=== PATIENT | female | born 1970 | race Hispanic/Latino ===

== ENCOUNTER 2017-05-01 17:11 | Emergency (ER) | payer OTHER ==
[~2017-05-01] VITALS: Ht 160 cm; Wt 56.3 kg
[2017-05-01] MEDS ORDERED: CYPR4TA PO (17:31)
[2017-05-01] MEDS ORDERED: COLA100C5 PO (17:31)
[2017-05-01] MEDS ORDERED: IRON50TA PO (17:31)
[2017-05-01] MEDS ORDERED: METAL LOCK LOOP XX ONE (18:50)
[2017-05-01 20:40] LABS: BASO % 1.2 % (0.0-1.0); EOS # 0.1 K/mm3 (0.0-0.50); EOS % 1.4 % (0.0-3.0); LARGE UNSTAINED CELL # 0.1 K/mm3 (0.0-0.4); LYMPH # 1.7 K/mm3 (1.5-4.5); LYMPH % 36.9 % (24.0-44.0); MEAN CORPUSCULAR HEMOGLOBIN 31.4 pg (27.0-33.0); MEAN CORPUSCULAR HGB CONC 34.5 g/dl (32.0-36.5); MONO # 0.2 K/mm3 (0.0-0.8); MONO % 4.3 % (0.0-5.0); NEUTROPHILS # 2.4 K/mm3 (1.8-7.7); NEUTROPHILS % 54.3 % (36.0-66.0); PLATELET COUNT, AUTOMATED 274 k/mm3 (150-450); RED CELL DISTRIBUTION WIDTH 12.4 % (11.5-14.5); WHITE BLOOD COUNT 4.4 K/mm3 (4.0-10.0)
[2017-05-01 21:00] LABS: ALBUMIN 4.1 GM/DL (3.2-5.2); ALKALINE PHOSPHATASE 68 U/L (45-117); ALT/SGPT 16 U/L (12-78); ANION GAP 11 MEQ/L (8-16); AST/SGOT 19 U/L (15-37); BILIRUBIN,TOTAL 0.4 MG/DL (0.2-1.0); BLOOD UREA NITROGEN 11 MG/DL (7-18); CALCIUM LEVEL 9.2 MG/DL (8.5-10.1); CARBON DIOXIDE LEVEL 26 MEQ/L (21-32); CHLORIDE LEVEL 106 MEQ/L (98-107); GLOMERULAR FILTRATION RATE > 60.0 (>58); GLUCOSE, FASTING 108 MG/DL (70-105); MAGNESIUM LEVEL 2.2 MG/DL (1.8-2.4); POTASSIUM SERUM 3.7 MEQ/L (3.5-5.1); SODIUM LEVEL 143 MEQ/L (136-145); TOTAL PROTEIN 8.2 GM/DL (6.4-8.2)
[2017-05-01] MEDS ORDERED: cefTRIAXone SOD 2 GM in D5W MINI-BAG PLUS 50 ML IV ONE (21:45)
[2017-05-01] MEDS ORDERED: cefTRIAXone SOD 1 GM VIAL (J0696) IM ONE (21:45)
[2017-05-01] MEDS ORDERED: KEFL500C17 PO (21:45)
[2017-05-01 22:15] VITALS: BP 136/66
== END 2017-05-01 22:28 | disposition home or self-care (01) ==
LOC: M ED 17:11
DX: N39.0 Urinary tract infection, site not specified (principal); Z79.899 Other long term (current) drug therapy
CPT/HCPCS: 80053; 81001; 83735; 85025; 87040; 87088; 87186; 87491; 87591; 96372; 96374; 99282; J0696

== ENCOUNTER → 2017-06-09 | Outpatient (REF) | payer OTHER ==
[~2017-06-09] MED LIST: COLA100C5 PO; CYPR4TA PO; IRON50TA PO; KEFL500C17 PO
[2017-06-09 18:45] LABS: MEAN CORPUSCULAR HEMOGLOBIN 31.2 pg (27.0-33.0); MEAN CORPUSCULAR HGB CONC 33.9 g/dl (32.0-36.5); MEAN CORPUSCULAR VOLUME 92.1 fl (80.0-96.0); WHITE BLOOD COUNT 5.5 10^3/uL (4.0-10.0)
== END ==
LOC: M SFHCPLAZ 14:53
PROVIDERS: ATTEND Family Medicine
DX: D50.9 Iron deficiency anemia, unspecified (principal)

== ENCOUNTER → 2017-07-24 | Outpatient (CLI) | payer OTHER | LOC: M WUC 08:46 | PROVIDERS: ATTEND Obstetrics & Gynecology | DX: N97.8 Female infertility of other origin (principal) ==

== ENCOUNTER → 2017-10-10 | Outpatient (CLI) | payer OTHER ==
[~2017-10-10] MED LIST changes: -COLA100C5 PO; -CYPR4TA PO; -IRON50TA PO; +ISOVUE-370 76% 100ML VIAL (Q9967) As Ordered; -KEFL500C17 PO
== END ==
LOC: M RADPRO 11:45
DX: N97.1 Female infertility of tubal origin (principal); Z79.899 Other long term (current) drug therapy
CPT/HCPCS: 58340

== ENCOUNTER 2017-11-05 14:04 | Emergency (ER) | payer OTHER | END 2017-11-05 14:37 | disposition left against medical advice (07) | LOC: M ED 14:04 | DX: Z53.21 Procedure and treatment not carried out due to patient leaving prior to being seen by health care provider (principal) ==

== ENCOUNTER 2017-11-05 20:10 | Emergency (ER) | payer OTHER | END 2017-11-05 22:18 | disposition home or self-care (01) | LOC: M ED 20:10 | DX: L25.9 Unspecified contact dermatitis, unspecified cause (principal); Z20.7 Contact with and (suspected) exposure to pediculosis, acariasis and other infestations; D64.9 Anemia, unspecified; Z79.899 Other long term (current) drug therapy | CPT/HCPCS: 99283 ==

== ENCOUNTER 2018-02-11 18:31 | Emergency (ER) | payer OTHER | END 2018-02-11 22:59 | disposition home or self-care (01) | LOC: M ED 18:31 | DX: Z60.9 Problem related to social environment, unspecified (principal); S00.81XA Abrasion of other part of head, initial encounter; X78.8XXA Intentional self-harm by other sharp object, initial encounter; Y92.89 Other specified places as the place of occurrence of the external cause; Z79.899 Other long term (current) drug therapy | CPT/HCPCS: 99285 ==

== ENCOUNTER 2018-03-26 13:26 | Emergency (ER) | payer OTHER | END 2018-03-26 16:44 | disposition home or self-care (01) | LOC: M ED 13:26 | DX: M25.561 Pain in right knee (principal); M25.562 Pain in left knee; D64.9 Anemia, unspecified; Z79.899 Other long term (current) drug therapy | CPT/HCPCS: 99282 ==

== ENCOUNTER → 2018-06-26 | Outpatient (REF) | payer OTHER ==
[2018-06-26 15:54] LABS: BASO # 0.1 10^3/uL (0.0-0.2); EOS # 0.1 10^3/uL (0.0-0.50); EOS % 1.4 % (0.0-3.0); HEMATOCRIT 36.2 % (36.0-47.0); HEMOGLOBIN 11.5 g/dl (12.0-15.5); IMMATURE GRANULOCYTE % 0.2 % (0-3.0); LYMPH # 1.8 10^3/uL (1.5-4.5); LYMPH % 35.1 % (24.0-44.0); MEAN CORPUSCULAR HEMOGLOBIN 27.5 pg (27.0-33.0); MEAN CORPUSCULAR HGB CONC 31.8 g/dl (32.0-36.5); MEAN CORPUSCULAR VOLUME 86.6 fl (80.0-96.0); MONO # 0.4 10^3/uL (0.0-0.8); MONO % 8.5 % (0.0-5.0); NEUTROPHILS # 2.8 10^3/uL (1.8-7.7); NEUTROPHILS % 53.8 % (36.0-66.0); PLATELET COUNT, AUTOMATED 352 10^3/uL (150-450); RED BLOOD COUNT 4.18 10^6/uL (4.00-5.40); RED CELL DISTRIBUTION WIDTH 12.3 % (11.5-14.5); WHITE BLOOD COUNT 5.2 10^3/uL (4.0-10.0)
== END ==
LOC: M SFHCPLAZ 13:42
DX: R63.0 Anorexia (principal)
CPT/HCPCS: 85025

== ENCOUNTER 2018-09-03 13:12 | Emergency (ER) | payer OTHER ==
[~2018-09-03] VITALS: Ht 160 cm; Wt 60.5 kg
[~2018-09-03 13:12] MED LIST changes: +BENA2CRE3 EXT; +CLOB-25 TOP; +COLA100C5 PO; +CYPR4TA PO; +ELIM5CRE2 TOP; +IRON50TA PO; -ISOVUE-370 76% 100ML VIAL (Q9967) As Ordered; +KEFL500C17 PO; +MOBI4TAB PO
[2018-09-03 13:13] VITALS: BP 137/67
[2018-09-03 13:40] LABS: URINE PREG TEST NEGATIVE (NEGATIVE)
[2018-09-03] MEDS ORDERED: MACR100C43 PO (14:09)
[2018-09-03] MEDS ORDERED: PYRI1TAB5 PO (14:10)
== END 2018-09-03 14:24 | disposition home or self-care (01) ==
LOC: M ED 13:12
DX: N39.0 Urinary tract infection, site not specified (principal); D64.9 Anemia, unspecified; Z79.899 Other long term (current) drug therapy

== ENCOUNTER 2018-11-07 13:32 | Emergency (ER) | payer OTHER ==
[~2018-11-07] VITALS: Ht 160 cm; Wt 61.4 kg
[~2018-11-07 13:32] MED LIST changes: +MACR100C43 PO; +PYRI1TAB5 PO
[2018-11-07] MEDS ORDERED: IBUP-1022 PO (14:51)
[2018-11-07] MEDS ORDERED: LIDO1SOL7 PO (14:51)
[2018-11-07 14:59] VITALS: BP 118/78
[2018-11-07] MEDS ORDERED: LIDOCAINE VISCOUS 2% SOLN 15ML UDC SS ONE (15:00)
[2018-11-07] MEDS ORDERED: IBUPROFEN 600 MG TAB PO ONE (15:00)
== END 2018-11-07 15:14 | disposition home or self-care (01) ==
LOC: M ED 13:32
DX: J02.9 Acute pharyngitis, unspecified (principal); Z79.899 Other long term (current) drug therapy

== ENCOUNTER → 2018-12-30 | Outpatient (CLI) | payer OTHER ==
[~2018-12-30] MED LIST changes: +IBUP-1022 PO; +LIDO1SOL8 PO
--- NOTE | 2018-12-30 13:46 | REP ---
THORACIC SPINE, THREE VIEWS: HISTORY: Low back pain. There is no acute fracture or subluxation. The intervertebral discs are normal in height. IMPRESSION: There is no acute fracture or subluxation. Electronically Signed by Michael Dee MD 12/30/2018 01:52 P
--- NOTE | 2018-12-30 13:48 | REP ---
LUMBAR SPINE, SEVEN VIEWS: HISTORY: Low back pain. There is no acute fracture or subluxation. The L4-5 intervertebral disc is decreased in height consistent with disc degeneration. The facet joints are normal in appearance. IMPRESSION: Degenerative change as described above. Electronically Signed by Michael Dee MD 12/30/2018 01:52 P
== END ==
LOC: M RAD 12:01
PROVIDERS: ATTEND Family Medicine
DX: M54.5 Low back pain (principal)

== ENCOUNTER → 2019-01-03 | Outpatient (REF) | payer OTHER ==
[2019-01-03 10:46] LABS: HEMATOCRIT 37.3 % (36.0-47.0); HEMOGLOBIN 11.6 g/dl (12.0-15.5); MEAN CORPUSCULAR HEMOGLOBIN 26.2 pg (27.0-33.0); MEAN CORPUSCULAR HGB CONC 31.1 g/dl (32.0-36.5); MEAN CORPUSCULAR VOLUME 84.2 fl (80.0-96.0); PLATELET COUNT, AUTOMATED 336 10^3/uL (150-450); RED BLOOD COUNT 4.43 10^6/uL (4.00-5.40); WHITE BLOOD COUNT 4.6 10^3/uL (4.0-10.0)
[2019-01-03 11:15] LABS: CHOLESTEROL LEVEL 182 MG/DL (<200); CHOLESTEROL RISK RATIO 3.137 (<5); GLUCOSE, FASTING 104 MG/DL (70-100); HDL CHOLESTEROL 58 MG/DL (>40); LDL CHOLESTEROL 108 MG/DL (<100); NON-HDL-C 124 MG/DL; TRIGLYCERIDES LEVEL 81 MG/DL (<150)
[2019-01-03 11:27] LABS: TOTAL 25(OH) VITAMIN D 16.9 NG/ML (30.0-100.0)
[2019-01-03 12:07] LABS: HIV 1&2 SCREEN CENTAUR NEGATIVE (NEGATIVE)
[2019-01-03 12:15] LABS: CHLAMYDIA DNA AMPLIFICATION NEGATIVE (NEGATIVE); GC DNA AMPLIFICATION NEGATIVE (NEGATIVE)
== END ==
LOC: M SFHCPLAZ 09:06
PROVIDERS: ATTEND Family Medicine
DX: D50.9 Iron deficiency anemia, unspecified (principal); Z11.3 Encounter for screening for infections with a predominantly sexual mode of transmission; Z13.1 Encounter for screening for diabetes mellitus; Z13.220 Encounter for screening for lipoid disorders; E55.9 Vitamin D deficiency, unspecified

== ENCOUNTER → 2019-01-09 | Outpatient (CLI) | payer OTHER ==
--- NOTE | 2019-01-10 04:59 | REP ---
Clinical: Menometrorrhagia . Technique: Transabdominal pelvic ultrasound followed by transvaginal examination for better evaluation of the endometrium and adnexa with color Doppler evaluation of the ovaries. Findings: Bladder is unremarkable and measures 6.4 x 5.7 x 9.1 cm . Normal anteverted uterus measures 8.4 x 5.7 x 7.0 cm . The endometrial complex measures 11.6 mm thickness. No discrete uterine or endometrial abnormalities are appreciated. Incidental Nabothian cyst noted in the cervical region. Right ovary is normal in appearance and measures 2.4 x 1.4 x 2.5 cm. Left ovary measures 3.0 x 2.6 x 2.7 cm with suspected complex hemorrhagic cystic change. No pelvic fluid or adnexal mass lesion . Impression: 1. Essentially normal uterus with few Nabothian cysts. 2. Suspected complex hemorrhagic cyst in the left ovary. Consider reevaluation and 4-6 weeks to evaluate for resolution.
== END ==
LOC: M WHC 12:58
PROVIDERS: ATTEND Family Medicine
DX: N88.8 Other specified noninflammatory disorders of cervix uteri (principal)

== ENCOUNTER → 2019-01-12 | Outpatient (REF) | payer OTHER | LOC: M SFHCWAGY 10:49 | PROVIDERS: ATTEND Nurse Practitioner Women's Health | DX: N92.1 Excessive and frequent menstruation with irregular cycle (principal); N84.1 Polyp of cervix uteri ==

== ENCOUNTER 2019-02-05 12:48 | Emergency (ER) | payer OTHER ==
[~2019-02-05] VITALS: Ht 160 cm; Wt 59.5 kg
[2019-02-05] MEDS ORDERED: VITAD1000T PO (13:29)
[2019-02-05] MEDS ORDERED: ACET-683 PO (13:29)
[2019-02-05] MEDS ORDERED: KETO10TAB PO (14:30)
[2019-02-05] MEDS ORDERED: CYCL5TAB PO (14:30)
[2019-02-05 14:42] VITALS: BP 130/76
== END 2019-02-05 14:42 | disposition home or self-care (01) ==
LOC: M ED 12:48
DX: M62.838 Other muscle spasm (principal); N93.8 Other specified abnormal uterine and vaginal bleeding; D64.9 Anemia, unspecified; Z79.899 Other long term (current) drug therapy

== ENCOUNTER → 2019-02-15 | Outpatient (CLI) | payer OTHER ==
[~2019-02-15] MED LIST changes: +ACET-683 PO; +CYCL5TAB PO; +KETO10TAB PO; +VITAD1000T PO
--- NOTE | 2019-02-15 12:41 | REPMRS ---
Patient History The patient states she has not had a clinical breast exam in over a year. Family history of prostate cancer at age 50 or over in paternal grandfather. Implants in both breasts, 2000. Digital Woman Screen Mammo: February 15, 2019 - Exam #: [id number] Bilateral CC and MLO view(s) were taken. Technologist: Bebe King Technologist Prior study comparison: July 12, 2017, digital woman screen mammo performed at [facility]. FINDINGS: There are scattered fibroglandular densities. The visualized implant margins are smooth. Breast parenchymal density pattern is essentially symmetric. No dominant mass, clustered microcalcification, or architectural distortion is evident on either side. No significant changes when compared with prior studies. Assessment: BI-RADS/ACR category 2 mammogram. Benign Findings. Recommendation Routine screening mammogram of both breasts in 1 year (for women over age 40). This patient's Lifetime Breast Cancer RIsk is estimated at 9.4 %. This mammogram was interpreted with the aid of an FDA-approved computer-aided dectection system. Electronically Signed By: Kyle Grigsby MD 02/15/19 0026
--- NOTE | 2019-02-15 12:49 | REP ---
PELVIC SONOGRAPHY: HISTORY: Hemorrhagic cyst left ovary. Comparison pelvic sonography January 09, 2019. TODAY'S SONOGRAPHIC FINDINGS: Transabdominal and endovaginal scanning are performed. Uterine dimensions are normal at 8.0 x 4.7 x 6.6 cm. Endometrial echo 0.4 cm thick. Uterus is tipped somewhat to the left. Nabothian cysts are seen in the cervix. Normal ovaries are seen today bilaterally. Right ovary dimensions of 2.8 x 1.4 x 2.2 cm. Left ovary measures 2.1 x 1.1 x 1.6 cm. Doppler flow is normal with resistive indices measured at 0.46 and 0.58 on the right and left respectively. The rounded hypoechoic structure in the left adnexa seen recently is no longer apparent. IMPRESSION: Unremarkable pelvic sonography.
== END ==
LOC: M WHC 10:46
PROVIDERS: ATTEND Family Medicine
DX: N83.202 Unspecified ovarian cyst, left side (principal)

== ENCOUNTER 2019-04-18 10:15 | Day surgery (SDC) | payer OTHER ==
[~2019-04-18] VITALS: Ht 160 cm; Wt 61.2 kg
[~2019-04-18 10:15] MED LIST changes: +COLLCAP PO; +KETOROLAC 60 MG/2 ML VIAL (J1885) As Ordered ONE; +LIDOCAINE 2% INJ 100 MG/5 ML SDV (FOR ANES.) As Ordered ONE; +LR 1,000 ML IV ONE; +MIDAZOLAM INJ 2 MG/2 ML VIAL (J2250) As Ordered ONE; +ONDANSETRON 4MG/2ML VIAL (J2405) As Ordered ONE; +PROPOFOL 200 MG/20 ML VIAL As Ordered ONE; +dexameTHASONE 4 MG/ML 1ML VIAL (J1100) As Ordered ONE; +fentaNYL 100 MCG/2 ML INJECTION (J3010) As Ordered ONE
[2019-04-18 10:55] LABS: HEMATOCRIT 39.7 % (36.0-47.0); HEMOGLOBIN 12.8 g/dl (12.0-15.5); MEAN CORPUSCULAR HGB CONC 32.2 g/dl (32.0-36.5); PLATELET COUNT, AUTOMATED 265 10^3/uL (150-450); RED BLOOD COUNT 4.41 10^6/uL (4.00-5.40); WHITE BLOOD COUNT 5.4 10^3/uL (4.0-10.0)
[2019-04-18 10:56] LABS: URINE PREG TEST NEGATIVE (NEGATIVE)
[2019-04-18] MEDS ORDERED: oxyCODONE 5MG TAB As Ordered ONE (13:40)
--- NOTE | 2019-04-18 14:03 | RO ---
DATE OF PROCEDURE: 04/18/2019 PREOPERATIVE DIAGNOSIS: Abnormal uterine bleeding. POSTOPERATIVE DIAGNOSIS: Abnormal uterine bleeding. PROCEDURE PERFORMED: Hysteroscopy, dilation and curettage with NovaSure ablation. SURGEON: Nu Monterroso MD BEVEL MILL OPERATOR: None. ANESTHESIA: General. ESTIMATED BLOOD LOSS: 5 mL. INTRAVENOUS FLUIDS: 1 liter of lactated Ringer's solution. URINE OUTPUT: Was not obtained. SPECIMENS: Endometrial curettings. OPERATIVE FINDINGS: The patient with thickened endometrium with bilateral ostia visualized, cavity measured 5 x 4.9 cm. Postablation showed desiccation of the endometrium. Ablation lasted approximately 1 minute 45 seconds. DESCRIPTION OF OPERATION: After informed consent was obtained and written consent was reviewed, the patient was brought to the operating room where she was placed under general anesthesia. She was then placed in lithotomy position, was prepped and draped in a normal sterile fashion. A time out in the operating room was then performed identifying the patient, procedure be performed as well as drug allergies. Eleele speculum was then placed revealing the cervix and the anterior lip of cervix was grasped with a single-tooth tenaculum. The cervix was sounded and the uterine length was obtained. The cervix was then sequentially dilated with Hanks dilators. Hysteroscope was then advanced through the cervical os and the endometrium was surveyed showing a thickened endometrium. Bilateral ostia was visualized. Hysteroscope was then removed and the NovaSure device was then placed through the cervical os where the uterine width was obtained. Uterine width as well as the length was then entered into the device, a cavity assessment was performed and ablation was followed for approximately 1 minute 45 seconds. The NovaSure was then removed. The mesh was inspected noted to be intact. Hysteroscope was then advanced showing desiccation of the endometrium. Hysteroscope was then removed. Single-tooth tenaculum was removed. Tenaculum sites were noted be hemostatic. Speculum was then removed. The patient was then taken out of lithotomy position was awakened from general anesthesia and taken recovery in stable condition. Counts were correct.
[2019-04-18] MEDS ORDERED: PROMETHAZINE INJ 25 MG/ML VIAL (J2550) IV PRN (14:30)
[2019-04-18] MEDS ORDERED: LR 1,000 ML IV SCH (14:30)
[2019-04-18] MEDS ORDERED: METOCLOPRAMIDE INJ 10MG/2ML VIAL (J2765) IV PRN (14:30)
[2019-04-18] MEDS ORDERED: HYDROMORPHONE HCL 0.5 MG/ 0.5 ML SYRINGE (J1170 PER 1) IV PRN (14:30)
[2019-04-18] MEDS ORDERED: fentaNYL 100 MCG/2 ML INJECTION (J3010) IV PRN (14:30)
[2019-04-18] MEDS ORDERED: oxyCODONE 5MG TAB PO PRN (14:30)
[2019-04-18] MEDS ORDERED: PERCOCET 5MG/325MG TAB PO PRN (14:30)
[2019-04-18 14:35] VITALS: BP 125/65
[2019-04-18] MEDS ORDERED: KETOROLAC 30 MG/ML VIAL (J1885) IV SCH (17:00)
== END 2019-04-18 15:15 | disposition home or self-care (01) ==
LOC: M SDC 10:15
PROVIDERS: ATTEND Obstetrics & Gynecology
DX: N93.9 Abnormal uterine and vaginal bleeding, unspecified (principal); D64.9 Anemia, unspecified; Z79.899 Other long term (current) drug therapy
CPT/HCPCS: 36415; 58563; 84703; 85027; 86850; 86900; 86901; 88305; J1100; J1885; J2250; J2405

== ENCOUNTER 2019-05-09 17:18 | Emergency (ER) | payer OTHER ==
[~2019-05-09] VITALS: Ht 160 cm; Wt 132.0 kg
[~2019-05-09 17:18] MED LIST changes: +CHOL100029 PO; -KETOROLAC 60 MG/2 ML VIAL (J1885) As Ordered ONE; -LIDOCAINE 2% INJ 100 MG/5 ML SDV (FOR ANES.) As Ordered ONE; -LR 1,000 ML IV ONE; -MIDAZOLAM INJ 2 MG/2 ML VIAL (J2250) As Ordered ONE; -ONDANSETRON 4MG/2ML VIAL (J2405) As Ordered ONE; -PROPOFOL 200 MG/20 ML VIAL As Ordered ONE; -VITAD1000T PO; -dexameTHASONE 4 MG/ML 1ML VIAL (J1100) As Ordered ONE; -fentaNYL 100 MCG/2 ML INJECTION (J3010) As Ordered ONE
[2019-05-09 18:31] LABS: HCG, SERUM QUALITATIVE NEGATIVE (NEGATIVE)
[2019-05-09 20:04] VITALS: BP 123/63
[2019-05-09] MEDS ORDERED: MACR100C43 PO (20:37)
[2019-05-09] MEDS ORDERED: NITROFURANTOIN (MACROBID) 100 MG CAP PO ONE (20:45)
== END 2019-05-09 20:52 | disposition home or self-care (01) ==
LOC: M ED 17:18
DX: N39.0 Urinary tract infection, site not specified (principal); E11.9 Type 2 diabetes mellitus without complications; D64.9 Anemia, unspecified; N92.0 Excessive and frequent menstruation with regular cycle; Z87.442 Personal history of urinary calculi; Z87.42 Personal history of other diseases of the female genital tract; Z79.899 Other long term (current) drug therapy

== ENCOUNTER 2019-05-16 20:03 | Emergency (ER) | payer OTHER ==
[~2019-05-16] VITALS: Ht 160 cm; Wt 60.0 kg
[2019-05-16 20:03] VITALS: BP 129/83
== END 2019-05-16 22:41 | disposition left against medical advice (07) ==
LOC: M ED 20:03
DX: Z53.21 Procedure and treatment not carried out due to patient leaving prior to being seen by health care provider (principal)

== ENCOUNTER → 2019-06-04 | Outpatient (CLI) | payer OTHER ==
--- NOTE | 2019-06-04 10:18 | REP ---
RIGHT UPPER QUADRANT ULTRASOUND: Real-time sonographic evaluation of the right upper quadrant performed. Echogenic focus along the inner wall of the gallbladder does not demonstrate distal acoustic shadowing and is non-mobile suspicious for a polyp, 4 mm. Otherwise no definite gallstones are seen and there is no gallbladder wall thickening. There is no free fluid. There is no intrahepatic or extrahepatic biliary dilatation, common bile duct measuring 4 mm. Liver demonstrates a heterogeneous mass 4.2 x 3.6 x 5.0 cm, hyperechoic, in the right lobe of the liver. Pancreas is not well seen due to overlying bowel gas. Right kidney demonstrates no hydronephrosis 9.8 cm in length. IMPRESSION: Findings most consistent with a polyp in the gallbladder 4 mm in diameter. No definite gallstones, gallbladder wall thickening or biliary dilatation. No free fluid. There is an irregular hyperechoic area in the right lobe of the liver with a maximum diameter of the 5 cm. Differential diagnosis would include hemangioma, focal area of fatty infiltration or other mass. Recommend further evaluation with MRI liver with and without contrast. Electronically Signed by Demarcus Rebolledo MD 06/04/2019 04:33 P
== END ==
LOC: M RAD 07:48
PROVIDERS: ATTEND Family Medicine
DX: K82.4 Cholesterolosis of gallbladder (principal)

== ENCOUNTER → 2019-06-07 | Outpatient (REF) | payer OTHER ==
[2019-06-07 11:39] LABS: ALBUMIN 3.6 GM/DL (3.2-5.2); ALT/SGPT 13 U/L (12-78); BILIRUBIN,TOTAL 0.6 MG/DL (0.2-1.0); BLOOD UREA NITROGEN 10 MG/DL (7-18); CALCIUM LEVEL 8.7 MG/DL (8.5-10.1); CARBON DIOXIDE LEVEL 28 MEQ/L (21-32); CHLORIDE LEVEL 106 MEQ/L (98-107); CREATININE FOR GFR 0.74 MG/DL (0.55-1.30); GLOMERULAR FILTRATION RATE > 60.0 (>58); GLUCOSE, FASTING 137 MG/DL (70-100); POTASSIUM SERUM 3.9 MEQ/L (3.5-5.1); SODIUM LEVEL 140 MEQ/L (136-145); TOTAL PROTEIN 7.2 GM/DL (6.4-8.2)
[2019-06-12 16:47] LABS: AFP TUMOR TOTAL 1.7 ng/mL (0.0-8.0)
== END ==
LOC: M SFHCPLAZ 09:58
PROVIDERS: ATTEND Family Medicine
DX: R16.0 Hepatomegaly, not elsewhere classified (principal)

== ENCOUNTER → 2019-06-15 | Outpatient (CLI) | payer OTHER ==
--- NOTE | 2019-06-15 16:59 | REP ---
MRI LIVER WITH AND WITHOUT CONTRAST: COMPARISON: Ultrasound 06/04/2019. TECHNIQUE: Multiple sequences obtained in the axial and coronal planes prior to and following the intravenous administration of 15 mL ProHance. In the posterior segment of the right lobe of the liver, just above the upper pole of the right kidney, there is a geographic area of low signal on out of phase images. This is also low in signal on the T1 FS images, both pre and postcontrast. There is no abnormal enhancement in any portion of the liver, with no enhancing mass. The area of low signal on the out of phase and fat sat images corresponds to the hyperechoic area on ultrasound and is consistent with focal fatty infiltration of the liver at this location. There is no gallbladder wall edema. The spleen is normal in size with no intrinsic abnormality. The adrenals, pancreas and kidneys appear normal. There is no abdominal aortic aneurysm. There is no adenopathy or free fluid. IMPRESSION: The area of abnormal echotexture in the right lobe of the liver corresponds to a geographic area of focal fatty infiltration on the MRI images. The borders are somewhat irregular and the area measures approximately 5 cm in maximum diameter. There is no suspicious liver mass or adenopathy. Electronically Signed by Demarcus Rebolledo MD 06/19/2019 08:58 A
== END ==
LOC: M PLARAD 14:00
PROVIDERS: ATTEND Family Medicine
DX: R16.0 Hepatomegaly, not elsewhere classified (principal)

== ENCOUNTER 2019-07-23 11:59 | Emergency (ER) | payer OTHER ==
[~2019-07-23] VITALS: Ht 160 cm; Wt 61.4 kg
[2019-07-23] MEDS ORDERED: BACT800T5 PO (14:09)
[2019-07-23] MEDS ORDERED: PYRI1TAB5 PO (14:09)
[2019-07-23 14:29] LABS: BASO # 0.1 10^3/uL (0.0-0.2); BASO % 0.9 % (0.0-1.0); EOS % 0.6 % (0.0-3.0); HEMATOCRIT 46.6 % (36.0-47.0); HEMOGLOBIN 15.1 g/dl (12.0-15.5); LYMPH # 1.8 10^3/uL (1.5-5.0); LYMPH % 26.8 % (24.0-44.0); MEAN CORPUSCULAR HEMOGLOBIN 29.6 pg (27.0-33.0); MEAN CORPUSCULAR HGB CONC 32.4 g/dl (32.0-36.5); MEAN CORPUSCULAR VOLUME 91.4 fl (80.0-96.0); MONO # 0.3 10^3/uL (0.0-0.8); MONO % 5.2 % (0.0-5.0); NEUTROPHILS # 4.3 10^3/uL (1.5-8.5); NEUTROPHILS % 66.3 % (36.0-66.0); PLATELET COUNT, AUTOMATED 320 10^3/uL (150-450); WHITE BLOOD COUNT 6.5 10^3/uL (4.0-10.0)
[2019-07-23 14:50] VITALS: BP 130/78
== END 2019-07-23 14:55 | disposition home or self-care (01) ==
LOC: M ED 11:59
DX: N39.0 Urinary tract infection, site not specified (principal)

== ENCOUNTER → 2019-07-30 | Outpatient (REF) | payer OTHER ==
[~2019-07-30] MED LIST changes: +BACT800T5 PO
[2019-07-30 19:54] LABS: APPEARANCE, URINE HAZY (CLEAR); BACTERIA, URINE AUTO 1+ (NEGATIVE); BILIRUBIN, URINE AUTO NEGATIVE (NEGATIVE); BLOOD, URINE BLOOD 1+ (NEGATIVE); CALCIUM OXALATE CRYSTALS SMALL; COLOR, URINE YELLOW (YELLOW); GLUCOSE, URINE (UA) AUTO 1+ mg/dL (NEGATIVE); KETONE, URINE AUTO NEGATIVE (NEGATIVE); LEUKOCYTE ESTERASE, URINE AUTO TRACE (NEGATIVE); MUCUS, URINE SMALL (NEGATIVE); NITRITE, URINE AUTO NEGATIVE (NEGATIVE); PROTEIN, URINE AUTO NEGATIVE (NEGATIVE); RBC, URINE AUTO 1 /HPF (0-3); SPECIFIC GRAVITY URINE AUTO 1.023 (1.002-1.035); SQUAMOUS EPITHELIAL CELL UR AU 3 /HPF (0-6); TRANSITIONAL EPITHELIAL AUTO <1 /HPF; UROBILINOGEN, URINE AUTO 0.2 mg/dL (0.0-2.0); WBC, URINE AUTO 3 /HPF (0-3)
== END ==
LOC: M SMT 17:17
PROVIDERS: ATTEND Nurse Practitioner Family
DX: N39.0 Urinary tract infection, site not specified (principal)

== ENCOUNTER → 2019-08-01 | Outpatient (CLI) | payer OTHER ==
--- NOTE | 2019-08-01 15:35 | REP ---
Clinical: Urinary tract infection. Technique: Real time grey scale ultrasound examination using curved array transducer. Findings: The bilateral kidneys are normal in contour, size, echogenicity, and reniform shape without hydronephrosis, nephrolithiasis, cystic or renal mass lesion. Right kidney measures 10.6 x 4.2 x 3.4 cm. Left kidney measures 10.8 x 3.9 x 5.2 cm. Impression: Normal renal ultrasound. Electronically Signed by Reinier Terry MD 08/01/2019 03:26 P
--- NOTE | 2019-08-01 15:36 | REP ---
Clinical: Urinary tract infection. Technique: Real time grey scale and color evaluation using curved array transducer. Findings: Bladder is normal in appearance and without wall thickening or mass lesion. Bilateral ureteral jets noted. Prevoid bladder measures 9.4 x 9.3 x 6.8 cm (388 ml). Postvoid bladder measures 5.2 x 8.2 x 2.6 cm (72 ml). Postvoid residual equals 18%. Impression: Normal appearance of the bladder with moderately increased postvoid residual volume noted. Electronically Signed by Reinier Terry MD 08/01/2019 03:28 P
== END ==
LOC: M RAD 14:14
PROVIDERS: ATTEND Nurse Practitioner Family
DX: N39.0 Urinary tract infection, site not specified (principal)

== ENCOUNTER 2019-08-11 18:21 | Emergency (ER) | payer OTHER ==
[~2019-08-11] VITALS: Ht 160 cm; Wt 61.4 kg
[2019-08-11] MEDS ORDERED: BIOT1CAP2 PO (19:08)
[2019-08-11] MEDS ORDERED: B-12100T2 PO (19:08)
[2019-08-11] MEDS ORDERED: PHENAZOPYRIDINE 100 MG TAB PO ONE (19:30)
[2019-08-11 20:23] LABS: CHLAMYDIA DNA AMPLIFICATION NEGATIVE (NEGATIVE); GC DNA AMPLIFICATION NEGATIVE (NEGATIVE)
[2019-08-11] MEDS ORDERED: BACTRIM 160MG/800MG DS TAB PO ONE (20:30)
[2019-08-11] MEDS ORDERED: SULF1TAB93 PO (20:33)
[2019-08-11] MEDS ORDERED: PYRI1TAB5 PO (20:33)
[2019-08-11 20:45] VITALS: BP 119/65
== END 2019-08-11 20:46 | disposition home or self-care (01) ==
LOC: M ED 18:21
DX: N39.0 Urinary tract infection, site not specified (principal); R31.9 Hematuria, unspecified; Z87.440 Personal history of urinary (tract) infections; Z79.899 Other long term (current) drug therapy

== ENCOUNTER → 2019-10-09 | Outpatient (REF) | payer OTHER ==
[~2019-10-09] MED LIST changes: +B-12100T2 PO; +BIOT1CAP2 PO; +SULF1TAB93 PO
[2019-10-09 19:46] LABS: APPEARANCE, URINE CLOUDY (CLEAR); BACTERIA, URINE AUTO 1+ (NEGATIVE); BILIRUBIN, URINE AUTO NEGATIVE (NEGATIVE); BLOOD, URINE BLOOD NEGATIVE (NEGATIVE); COLOR, URINE YELLOW (YELLOW); GLUCOSE, URINE (UA) AUTO NEGATIVE (NEGATIVE); KETONE, URINE AUTO NEGATIVE (NEGATIVE); LEUKOCYTE ESTERASE, URINE AUTO TRACE (NEGATIVE); MUCUS, URINE SMALL (NEGATIVE); NITRITE, URINE AUTO POSITIVE (NEGATIVE); PROTEIN, URINE AUTO NEGATIVE (NEGATIVE); RBC, URINE AUTO 2 /HPF (0-3); SPECIFIC GRAVITY URINE AUTO 1.018 (1.002-1.035); SQUAMOUS EPITHELIAL CELL UR AU 4 /HPF (0-6); UROBILINOGEN, URINE AUTO 0.2 mg/dL (0.0-2.0); WBC, URINE AUTO 31 /HPF (0-3)
== END ==
LOC: M SMT 16:42
PROVIDERS: ATTEND Nurse Practitioner Family
DX: N39.0 Urinary tract infection, site not specified (principal)

== ENCOUNTER → 2019-10-24 | Outpatient (REF) | payer OTHER ==
[~2019-10-24] MED LIST changes: -LIDO1SOL8 PO; +LIDO2SOL17 PO; +NITR100C2
[2019-10-24 18:45] LABS: APPEARANCE, URINE HAZY (CLEAR); BACTERIA, URINE AUTO NEGATIVE (NEGATIVE); BILIRUBIN, URINE AUTO NEGATIVE (NEGATIVE); BLOOD, URINE BLOOD NEGATIVE (NEGATIVE); CALCIUM OXALATE CRYSTALS MODERATE; COLOR, URINE YELLOW (YELLOW); GLUCOSE, URINE (UA) AUTO NEGATIVE (NEGATIVE); KETONE, URINE AUTO NEGATIVE (NEGATIVE); LEUKOCYTE ESTERASE, URINE AUTO NEGATIVE (NEGATIVE); MUCUS, URINE SMALL (NEGATIVE); NITRITE, URINE AUTO NEGATIVE (NEGATIVE); PROTEIN, URINE AUTO NEGATIVE (NEGATIVE); RBC, URINE AUTO 1 /HPF (0-3); SPECIFIC GRAVITY URINE AUTO 1.024 (1.002-1.035); SQUAMOUS EPITHELIAL CELL UR AU 3 /HPF (0-6); UROBILINOGEN, URINE AUTO 0.2 mg/dL (0.0-2.0); WBC, URINE AUTO 1 /HPF (0-3)
== END ==
LOC: M SMT 17:09
PROVIDERS: ATTEND Nurse Practitioner Family
DX: N39.0 Urinary tract infection, site not specified (principal)

== ENCOUNTER 2019-10-26 12:59 | Emergency (ER) | payer OTHER ==
[~2019-10-26] VITALS: Ht 160 cm; Wt 61.4 kg
[~2019-10-26 12:59] MED LIST changes: -NITR100C2
[2019-10-26] MEDS ORDERED: NITR100C2 (13:05)
[2019-10-26 13:45] LABS: BASO % 0.7 % (0.0-1.0); EOS # 0.1 10^3/uL (0.0-0.5); EOS % 1.6 % (0.0-3.0); HEMATOCRIT 43.4 % (36.0-47.0); HEMOGLOBIN 14.7 g/dl (12.0-15.5); LYMPH # 1.5 10^3/uL (1.5-5.0); LYMPH % 35.1 % (24.0-44.0); MEAN CORPUSCULAR HEMOGLOBIN 30.7 pg (27.0-33.0); MEAN CORPUSCULAR HGB CONC 33.9 g/dl (32.0-36.5); MEAN CORPUSCULAR VOLUME 90.6 fl (80.0-96.0); MONO # 0.3 10^3/uL (0.0-0.8); MONO % 7.3 % (0.0-5.0); NEUTROPHILS # 2.4 10^3/uL (1.5-8.5); NEUTROPHILS % 55.1 % (36.0-66.0); PLATELET COUNT, AUTOMATED 255 10^3/uL (150-450); RED BLOOD COUNT 4.79 10^6/uL (4.00-5.40); WHITE BLOOD COUNT 4.3 10^3/uL (4.0-10.0)
[2019-10-26 13:56] LABS: INR 0.94; PROTHROMBIN TIME 12.3 SECONDS (11.8-14.0)
[2019-10-26 13:57] LABS: PARTIAL THROMBOPLASTIN TIME 27.9 SECONDS (25.0-38.4)
[2019-10-26 14:09] LABS: HCG, SERUM QUALITATIVE NEGATIVE (NEGATIVE)
[2019-10-26 14:20] LABS: ALBUMIN 4.3 GM/DL (3.2-5.2); ALT/SGPT 27 U/L (12-78); BILIRUBIN,DIRECT 0.1 MG/DL (0.0-0.2); BILIRUBIN,TOTAL 0.5 MG/DL (0.2-1.0); BLOOD UREA NITROGEN 10 MG/DL (7-18); CALCIUM LEVEL 9.7 MG/DL (8.5-10.1); CARBON DIOXIDE LEVEL 27 MEQ/L (21-32); CHLORIDE LEVEL 106 MEQ/L (98-107); CK-MB VALUE MASS < 1.0 NG/ML (<3.6); CPK CREATINE PHOSPHOKINASE 188 U/L (26-192); CREATININE FOR GFR 0.58 MG/DL (0.55-1.30); FREE T4 1.01 NG/DL (0.76-1.46); GLOMERULAR FILTRATION RATE > 60.0 (>58); GLUCOSE, FASTING 84 MG/DL (70-100); LIPASE 155 U/L (73-393); MAGNESIUM LEVEL 2.1 MG/DL (1.8-2.4); MB/CK RELATIVE INDEX 0.53 (< OR =4); NT-PRO BNP 90 PG/ML (<125); POTASSIUM SERUM 4.8 MEQ/L (3.5-5.1); SODIUM LEVEL 139 MEQ/L (136-145); TOTAL PROTEIN 8.2 GM/DL (6.4-8.2); TROPONIN I < 0.02 NG/ML (< 0.10)
--- NOTE | 2019-10-26 14:47 | REP ---
Clinical: Chest pain . Comparison: None . Findings: The mediastinum and cardiac silhouette are stable and within normal limits for portable technique. The lung patel are clear without acute consolidation, effusion, or pneumothorax. Skeletal structures are intact. Impression: No acute cardiopulmonary process appreciated. Electronically Signed by Reinier Terry MD 10/26/2019 02:38 P
[2019-10-26] MEDS ORDERED: ISOVUE-370 76% 100ML VIAL (Q9967) As Ordered ONE (14:48)
[2019-10-26 20:20] LABS: CK-MB VALUE MASS < 1.0 NG/ML (<3.6); CPK CREATINE PHOSPHOKINASE 86 U/L (26-192); MB/CK RELATIVE INDEX 1.16 (< OR =4); TROPONIN I < 0.02 NG/ML (< 0.10)
[2019-10-26 21:13] VITALS: BP 110/70
--- NOTE | 2019-10-28 20:33 | ECGEPIP ---
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
--- NOTE | 2019-10-28 20:38 | ECGEPIP ---
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
--- NOTE | 2019-10-30 00:32 | REP ---
Clinical: Acute pleuritic chest pain . Technique: Axial contrast enhanced images from the thoracic inlet to the upper abdomen using 75 ml Isovue 370 intravenous contrast material with multiplanar re-formations. Findings: Satisfactory enhancement of the pulmonary vasculature is achieved and no filling defects are identified to suggest pulmonary embolus. Further evaluation of the mediastinum demonstrates normal thoracic aorta, heart and pericardium. The bilateral lung patel are well aerated and clear without consolidation pleural effusion or pneumothorax. Tracheobronchial tree is patent. No nodule or mass lesion is identified. No adenopathy noted. Surrounding musculoskeletal structures intact. Bilateral mammoplasty. Impression: No evidence for pulmonary embolus. No acute mediastinal or pleural parenchymal process. Electronically Signed by Reinier Terry MD 10/30/2019 12:23 A
== END 2019-10-26 21:30 | disposition home or self-care (01) ==
LOC: M ED 12:59
DX: R00.2 Palpitations (principal); R06.02 Shortness of breath; D64.9 Anemia, unspecified; E55.9 Vitamin D deficiency, unspecified; G89.29 Other chronic pain; M54.5 Low back pain
CPT/HCPCS: 36415; 71045; 71275; 80048; 80076; 82550; 82553; 83690; 83735; 83880; 84100; 84439; 84443; 84484; 84703; 85025; 85610; 85730; 93005; 93041; 99284; Q9967